=== PATIENT | female | born 1975 | race African-American/Black ===

== ENCOUNTER 2018-02-17 18:11 | Emergency (ER) | payer SELFPAY ==
--- NOTE | 2018-02-17 19:27 | RAD ---
RADIOGRAPH LEFT HAND 3 VIEWS: 02/17/18 HISTORY: 42-year-old female with nontraumatic left hand pain for three weeks. FINDINGS: There is an ulna minus. There is mild degenerative joint disease at the DRUJ. The rest of the joint s paces are maintained without erosions or osteophytes. Bone mineralization is normal. No fracture or d estructive osseous lesion. IMPRESSION: 1. Ulnar negative variance. 2. Otherwise negative. POS: [facility]
== END 2018-02-17 19:38 | disposition home or self-care (01) ==
LOC: ERS 18:11
DX: M25.532 Pain in left wrist (principal); M79.642 Pain in left hand; I10 Essential (primary) hypertension; Z87.891 Personal history of nicotine dependence; Z79.899 Other long term (current) drug therapy

== ENCOUNTER 2018-07-26 18:26 | Emergency (ER) | payer BC ==
[2018-07-26 19:57] LABS: Bilirubin Small (Negative); Blood, Urine Negative (Negative); Clarity CLOUDY (Clear); Glucose, Urine (Dipstick) Negative (Negative); Leukocyte Trace (Negative); Nitrite Negative (Negative); Protein, Urine (Dipstick) Trace mg/dL (Neg-Trace)
[2018-07-26 19:59] LABS: Bacteria/HPF Rare-Few HPF (None Seen); Hyaline Casts/LPF 0-3 HYALINE CAST LPF (0-3 Hyaline); Pathc Cast-AUWi Flag 0.29 (0-2.49); RBC/HPF 0-3 HPF (0-3); WBC/HPF 0-3 HPF (0-3)
[2018-07-26 20:08] LABS: Crystals/HPF 2+ CA OXALATE HPF (Negative)
[2018-07-26] MEDS ORDERED: Ketorolac Tromethamine 30 MG/ML VIAL ONE (20:42)
== END 2018-07-26 21:03 | disposition home or self-care (01) ==
LOC: ERS 18:26
DX: M54.5 Low back pain (principal); K59.00 Constipation, unspecified; I10 Essential (primary) hypertension; Z87.891 Personal history of nicotine dependence; Z79.899 Other long term (current) drug therapy
CPT/HCPCS: 81003; 81015; 96372; J1885

== ENCOUNTER 2018-11-20 12:22 | Emergency (ER) | payer BC ==
--- NOTE | 2018-11-20 13:06 | RAD ---
XR Foot Rt 3 View STANDARD HISTORY: Fall with foot pain COMPARISON: None. FINDINGS: There are no signs of fracture or dislocation. A spur at the Achilles tendon insertion is n oted. IMPRESSION: No acute injury.
[2018-11-20] MEDS ORDERED: HYDROcodone/Acetaminophen 5/325 mg Tablet ONE (13:20)
== END 2018-11-20 13:27 | disposition home or self-care (01) ==
LOC: ERS 12:22
DX: M79.89 Other specified soft tissue disorders (principal); I10 Essential (primary) hypertension; Z87.891 Personal history of nicotine dependence; Z79.899 Other long term (current) drug therapy; W01.198A Fall on same level from slipping, tripping and stumbling with subsequent striking against other object, initial encounter

== ENCOUNTER 2019-06-12 07:01 | Outpatient (CLI) | payer BC ==
--- NOTE | 2019-06-12 08:15 | ULT ---
PELVIC SONOGRAM TRANSABDOMINAL IMAGING WITH DUPLEX EVALUATION: Date: 06/12/2019 HISTORY: Pelvic pain. FINDINGS: Urinary bladder is incompletely distended. Uterus has a homogeneous echotexture and measures up to 9. 4 cm. Endometrium is 1.5 cm. No focal abnormalities. Physiologic amount of free fluid in the pelvis. Right ovary is surgically absent. Left ovary shows a small follicle. Good color and spectral Doppler flow. IMPRESSION: 1. Thickened endometrium. 2. Status post right oophorectomy. POS: [facility]
== END 2019-06-12 07:02 | disposition home or self-care (01) ==
LOC: BICULT 07:01
PROVIDERS: ATTEND Physician Assistant
DX: N89.8 Other specified noninflammatory disorders of vagina (principal); R93.89 Abnormal findings on diagnostic imaging of other specified body structures; Z90.721 Acquired absence of ovaries, unilateral
CPT/HCPCS: 76856; 93976